=== PATIENT | male | born 1960 | race African-American/Black ===

== ENCOUNTER 2022-05-12 19:42 | Emergency (ER) | payer MEDICARE, SELFPAY ==
[2022-05-12 20:20] VITALS: BP 120/75; PULSE 88; RESP 12; TEMP 37.6; O2SAT 97; BMI 24.8
--- NOTE | 2022-05-12 21:12 | CTR_ITS ---
PROCEDURE INFORMATION: Exam: CT Abdomen And Pelvis Without Contrast Exam date and time: 05/12/2022 10:04 PM Age: 61 years old Clinical indication: Abdominal tenderness and bloating and nausea; Abdominal pain; Prior surgery; Surgery date: 6+ months; Surgery type: RT hip replacement; Additional info: Abd pain TECHNIQUE: Imaging protocol: Computed tomography of the abdomen and pelvis without contrast. Radiation optimization: All CT scans at this facility use at least one of these dose optimization techniques: automated exposure control; mA and/or kV adjustment per patient size (includes targeted exams where dose is matched to clinical indication); or iterative reconstruction. COMPARISON: No relevant prior studies available. RADIATION DOSE METRICS: Total DLP (mGy-cm): 1484.51 FINDINGS: Lungs: The lung bases are clear. Liver: Normal. No mass. Gallbladder and bile ducts: Normal. No calcified stones. No ductal dilation. Pancreas: Normal. No ductal dilation. Spleen: Normal. No splenomegaly. Adrenal glands: Normal. No mass. Kidneys and ureters: The kidneys are free of stones or obstruction. Stomach and bowel: No bowel obstruction or ileus. No bowel wall thickening. Appendix: No evidence of appendicitis. Intraperitoneal space: No free fluid, free air or abscess. Vasculature: Unremarkable. No abdominal aortic aneurysm. Lymph nodes: Unremarkable. No enlarged lymph nodes. Urinary bladder: Unremarkable as visualized. Reproductive: Unremarkable as visualized. 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 Mild degenerative changes in the lower lumbar spine. Soft tissues: Unremarkable. CT/CT abdomen pelvis con [id number] IMPRESSION: 1. No acute findings. 2. Incidental findings as described
[2022-05-12 21:22] VITALS: BP 138/82; PULSE 66; RESP 17; TEMP 37.7; O2SAT 96
[2022-05-12 21:40] LABS: Add Urine Microscopic? NO; Charge for UA Resulting for Rev
--- NOTE | 2022-05-12 21:43 | W.ED.ABDPA2 ---
HPI - Abdominal Pain General: Chief Complaint: Abdominal Pain Stated Complaint: fever/vomiting/prostate issues Time Seen by Provider: 05/12/22 21:11 Source: patient Mode of arrival: ambulatory Limitations: no limitations History of Present Illness: 61-year-old male states that he been having diffuse abdominal pain over the last 4 to 5 days along with some nausea vomiting and low-grade fevers. He states he is seen at [facility] diagnosed possible prostatitis started on Cipro. He states his pain is continued he rates it a 7 out of 10 he currently did not receive a CT scan. Denies any worsening proving factors. Associated Symptoms: Denies chills, dysuria and fever(s) Review of Systems Const: Denies: fever(s), chills, body aches or change in appetite Eyes: Denies: blurry vision or eye discomfort ENMT: Denies: throat pain or dental pain Card: Denies: chest pain Resp: Denies: dyspnea GI: Reports: abdominal pain : Denies: dysuria Musc: Denies: neck pain or back pain Skin/Breast: Denies: rash Neuro: Denies: headache(s) Psych: Denies: depression [place]/Lymph: Denies: easy bruising All/Imm: Denies: urticaria PFSH ED PFSH: Medical History (Updated 05/12/22 @ 23:50 by Janell Davey MD) No pertinent past medical history Social History (Updated 05/12/22 @ 21:45 by Janell Davey MD) Substance/Drug Use: never Physical Exam Const: COMMON NORMALS: no acute distress, patient oriented x3 and healthy appearing HENMT: COMMON NORMALS: normocephalic and atraumatic HEAD & SCALP: normocephalic and atraumatic Eye: COMMON NORMALS: Equal, round and reactive pupils present and EOMs intact bilaterally PUPIL: Yes Equal, round and reactive pupils present Neck/C-Spine: COMMON NORMALS: full ROM and supple Chest: COMMONS NORMALS: normal inspection of the chest and normal palpation of entire chest wall Resp: COMMON NORMALS: normal respiratory effort, No retractions, No use of accessory muscles and clear to auscultation bilaterally AUSCULTATION: clear to auscultation bilaterally Cardio: COMMON NORMALS: regular rate, regular rhythm and No murmurs present (Cardio) RATE: regular rate RHYTHM: regular rhythm GI: COMMON NORMALS: Normal to inspection, nondistended, normoactive bowel sounds present, Soft to palpation and no masses PALPATION: Yes Soft to palpation OTHER: diffuse mild tenderness Extremity: COMMON NORMALS: normal to inspection and full ROM Neuro: COMMON NORMALS: patient oriented x3, moves all extremities and no focal motor deficits Psych: COMMON NORMALS: mental status grossly normal, Normal thought process present and cooperative THOUGHT PROCESS: Normal thought process present Skin: COMMON NORMALS: no rashes or lesions noted and no wounds GENERAL SKIN EXAM: no rashes or lesions noted Course Vital Signs: Vital signs: Vital Signs Temperature 100 F H 05/12/22 21:22 Pulse Rate 74 05/12/22 23:45 Respiratory Rate 15 05/12/22 23:45 Blood Pressure 132/83 05/12/22 23:45 Pulse Oximetry 96 05/12/22 21:22 MDM - Abdominal Pain Medical Decision Making Patient presents here with abdominal pain patient is blood work CT abdomen all normal he stable for discharge we will prescribe pain meds he is to return if worsening he understands agrees to plan. Lab Data : 05/12/22 21:24 05/12/22 22:17 Labs/Radiology: Radiology Impressions Abdomen/Pelvis CT 05/12/22 21:12 IMPRESSION: 1. No acute findings. 2. Incidental findings as described Laboratory Results WBC 9.6 10^3/uL (4.0-10.0) 05/12/22 21:24 RBC 4.78 10^6/uL (4.1-5.3) 05/12/22 21:24 Hgb 13.4 g/dL (11.7-16.6) 05/12/22 21:24 Hct 41.5 % (42.0-52.0) L 05/12/22 21:24 MCV 86.8 fl (80-94) 05/12/22 21:24 MCH 28.0 pg (28.0-34.0) 05/12/22 21:24 MCHC 32.3 g/dL (30.0-36.0) 05/12/22 21:24 RDW 14.6 % (12.1-15.1) 05/12/22 21:24 Plt Count 260 10^3/cmm (130-400) 05/12/22 21:24 MPV 10.8 fL (7.4-10.4) H 05/12/22 21:24 Neut % (Auto) 38.0 % 05/12/22 21:24 Lymph % (Auto) 51.9 % 05/12/22 21:24 [place] % (Auto) 8.0 % 05/12/22 21:24 Eos % (Auto) 1.2 % 05/12/22 21:24 Baso % (Auto) 0.4 % 05/12/22 21: Neut # (Auto) 3.65 10^3/uL (1.8-7.7) 05/12/22 21: Lymph # (Auto) 5.0 10^3/uL (0.8-4.8) H 05/12/22: [place] # (Auto) 0.8 10^3/uL (0.2-0.9) 05/12/22: Eos # (Auto) 0.1 10^3/uL (0.0-0.8) 05/12/22: Baso # (Auto) 0.0 10^3/uL (0.0-0.1) 05/12/22 21: Nucleated RBC % (auto) 0 % 05/12/22: Nucleated RBCs # 0.0 /100WBC 05/12/22 21:24 Sodium 132 mmol/L (136-145) L 05/12/22 22:17 Potassium 3.5 mmol/L (3.5-5.1) 05/12/22 22:17 Chloride 96 mmol/L (98-107) L 05/12/22 22:17 Carbon Dioxide 25 mmol/L (22-29) 05/12/22 22:17 Anion Gap 14.5 (5-19) 05/12/22 22:17 BUN 15 mg/dL (8-23) 05/12/22 22:17 Creatinine 0.9 mg/dL (0.7-1.2) 05/12/22 22:17 GFR Calculation 103.5 mL/min (90-130) 05/12/22 22:17 Glucose 141 mg/dL (65-115) H 05/12/22 22:17 Calculated Osmolality 277 mOsm/kg (285-295) L 05/12/22 22:17 Calcium 8.8 mg/dL (8.5-10.5) 05/12/22 22:17 Total Bilirubin 0.6 mg/dL (0.15-1.2) 05/12/22 22:17 AST 59 U/L (0-40) H 05/12/22 22:17 ALT 82 U/L (0-41) H 05/12/22 22:17 Alkaline Phosphatase 144 IU/L (40-130) H 05/12/22 22:17 Total Protein 7.7 g/dL (6.6-8.7) 05/12/22 22:17 Albumin 3.4 g/dL (3.5-5.2) L 05/12/22 22:17 Globulin 4.3 g/dL (1.3-4.6) 05/12/22 22:17 Lipase 31 U/L (13-60) 05/12/22 22:17 Urine Color Yellow (Yellow) 05/12/22 21:31 Urine Appearance Clear (CLEAR) 05/12/22 21:31 Urine pH 5 (5-7) 05/12/22 21:31 Ur Specific [place] 1.030 (1.005-1.030) 05/12/22 21:31 Urine Protein Neg (Negative) 05/12/22 21:31 Urine Glucose (UA) Norm (Normal) 05/12/22 21:31 Urine Ketones Negative (Negative) 05/12/22 21:31 Urine Blood Neg (Negative) 05/12/22 21:31 Urine Nitrate Negative (Negative) 05/12/22 21:31 Urine Bilirubin 1+ (Negative) H 05/12/22 21:31 Urine Urobilinogen 4 mg/dL (Negative) H 05/12/22 21:31 Ur Leukocyte Esterase Negative (Negative) 05/12/22 21:31 Discharge Plan Discharge Patient Disposition: Home Clinical Impression: Abdominal pain Prescriptions: New hydrocodone-acetaminophen 5-325 mg tablet 1 tab PO Q6H PRN (Reason: pain) Qty: 14 0RF ondansetron 4 mg tablet,disintegrating 4 mg PO Q6H PRN (Reason: nausea and vomiting) Qty: 14 0RF Discharge Orders: Discharge ED (Routine); Ordered 05/12/22 Ordered By: Janell Davey Referrals: Eliot Velasco MD [Primary Care Provider] - 1-3 days Discharge Diet: Advance as tolerated Discharge Activity: Resume usual activity Patient Instructions: Abdominal Pain (ED), Opioid Safety Coding Level of Care Code ED Facilities Manager for [place] Fwd Exam Comprehensive
[2022-05-12 21:53] LABS: Bilirubin Urine 1+ (Negative); Blood Urine Neg (Negative); Glucose Urine UA Norm (Normal); Ketones Urine Negative (Negative); Leukocyte Esterase Urine Negative (Negative); Nitrate Urine Negative (Negative); Protein Urine Neg (Negative); Urine Appearance Clear (CLEAR); Urine Color Yellow (Yellow); Urobilinogen Urine 4 mg/dL (Negative); pH Urine 5 (5-7)
[2022-05-12 22:05] LABS: Basophils % 0.4 %; Eosinophils # 0.1 10^3/uL (0.0-0.8); Eosinophils % 1.2 %; Hematocrit 41.5 % (42.0-52.0); Hemoglobin 13.4 g/dL (11.7-16.6); Lymphocytes % 51.9 %; Mean Corpuscular HGB Conc 32.3 g/dL (30.0-36.0); Mean Corpuscular Volume 86.8 fl (80-94); Mean Platelet Volume 10.8 fL (7.4-10.4); Monocytes # 0.8 10^3/uL (0.2-0.9); Neutrophils # 3.65 10^3/uL (1.8-7.7); Nucleated Red Blood Cells % 0 %; Platelet Count 260 10^3/cmm (130-400); Red Blood Count 4.78 10^6/uL (4.1-5.3); Red Cell Distribution Width 14.6 % (12.1-15.1); White Blood Count 9.6 10^3/uL (4.0-10.0)
[2022-05-12 22:06] LABS: Slide Review Slide Review Perform
[2022-05-12 22:14] VITALS: RESP 16
[2022-05-12] MEDS: HYDROmorphone 1 mg/mL INJ 1 mL 0.5 MG IVP (22:14)
[2022-05-12] MEDS: ondansetron 2 mg/ML SDV 2 mL 4 MG IVP (22:14)
[2022-05-12 22:41] LABS: Alanine Aminotransferase 82 U/L (0-41); Albumin Level 3.4 g/dL (3.5-5.2); Alkaline Phosphatase 144 IU/L (40-130); Anion Gap 14.5 (5-19); Aspartate Amino Transferase 59 U/L (0-40); Blood Urea Nitrogen 15 mg/dL (8-23); Calcium 8.8 mg/dL (8.5-10.5); Carbon Dioxide 25 mmol/L (22-29); Chloride 96 mmol/L (98-107); Globulin 4.3 g/dL (1.3-4.6); Glomerular Filtration Rate 103.5 mL/min (90-130); Glucose 141 mg/dL (65-115); Lipase 31 U/L (13-60); Osmolality Calculated 277 mOsm/kg (285-295); Potassium 3.5 mmol/L (3.5-5.1); Sodium 132 mmol/L (136-145); Total Bilirubin 0.6 mg/dL (0.15-1.2); Total Protein 7.7 g/dL (6.6-8.7)
[2022-05-12 23:45] VITALS: BP 132/83; PULSE 74; RESP 15
[2022-05-13] VITALS: RESP 17; O2SAT 95
== END 2022-05-13 00:02 | disposition home or self-care (01) ==
PROVIDERS: Emergency Provider Emergency Medicine; PCP Family Medicine
DX: R10.9 Unspecified abdominal pain (principal)
CPT/HCPCS: 74176; 80053; 81003; 83690; 85025; 96374; 96375; 99284; J1170; J2405